=== PATIENT | male | born 1950 | race Asian ===

== ENCOUNTER 2022-10-22 16:16 | Emergency (ER) | payer OTHER ==
[~2022-10-22] VITALS: Ht 167.6 cm; Wt 63.5 kg
--- NOTE | 2022-10-22 16:34 | NUR ---
[facility] FOR GTUBE REPLACEMENT, G TUBE WAS PULLED 4 HR AGO. ATTACHED TO MONITOR. VITALS ARE WITHIN NORMAL LIMITS.
[2022-10-22 16:40] VITALS: BP 91/60; TEMP 98.2; O2SAT 100
[2022-10-22] MEDS ORDERED: DIATR MEGLU/DIATRIZOATE SODIUM 30 ML BOTTLE (GASTROGRAPHIN) ONE (17:51)
--- NOTE | 2022-10-22 18:42 | NUR ---
X RAY AT BEDSIDE
--- NOTE | 2022-10-22 19:12 | NUR ---
RECEIVED REPORT FROM ANGELA AGUIRRE. PT CAME FROM SNF, FOR REINSERTION OF GTUBE WHICH WAS DONE BY DR CARTAGENA. XRAY DONE, WAITING FOR RESULTS, POSSIBLE GOING BACK TO SNF. PT IS ATTACHED TO MONITOR, VITALS CHECKED.
--- NOTE | 2022-10-22 20:20 | NUR ---
[facility] ETA: 30-45 MIN. REPORT GIVEN TO TE FACILITY
--- NOTE | 2022-10-22 21:28 | NUR ---
[facility] AT BED SIDE
--- NOTE | 2022-10-22 21:43 | NUR ---
TRANSFERRED BACK TO SNF
== END 2022-10-22 21:43 ==
LOC: ER 16:25
DX: K94.23 Gastrostomy malfunction (principal); I10 Essential (primary) hypertension; E11.9 Type 2 diabetes mellitus without complications
CPT/HCPCS: 99284; 43762; 74018; Q9963

== ENCOUNTER 2022-10-23 20:15 | Emergency (ER) | payer OTHER ==
[~2022-10-23] VITALS: Ht 167.6 cm; Wt 63.5 kg
--- NOTE | 2022-10-23 20:30 | NUR ---
navjot from [facility] [place], for gtube replacement, pulled out GT, placed f/c. a/ox2. connected to bedside monitor, vitals are stable. nka. bed locked in lowest postion high fowlers.
--- NOTE | 2022-10-23 21:20 | NUR ---
DR ANABEL MCDONOUGH AT PT'S BEDSIDE TO INSERT GT 16FR
[2022-10-23] MEDS ORDERED: DIATR MEGLU/DIATRIZOATE SODIUM 30 ML BOTTLE (GASTROGRAPHIN) ONE (21:21)
--- NOTE | 2022-10-23 21:26 | NUR ---
UNDERCOVER AGENT AT PT'S BEDSIDE FOR GTUBE PLACEMENT Addendum: 10/23/22 at 2127 by JAY UNDERCOVER AGENT AT PT'S BEDSIDE TO CONFIRM GTUBE PLACEMENT
[2022-10-23] MEDS ORDERED: DIATR MEGLU/DIATRIZOATE SODIUM 120 ML BOTTLE (GASTROGRAPHIN) PO ONE (21:30)
--- NOTE | 2022-10-23 22:29 | NUR ---
[facility] TRANSPORT ARRANGED FOR PT GOING BACK TO [facility]. SPOKE TO MIKO. ETA 60-90MINS
--- NOTE | 2022-10-23 22:30 | NUR ---
PATIENT TRANSFERRED BACK TO [facility] VIA [facility]. PATIENT IS VITALLY STABLE.
--- NOTE | 2022-10-23 22:47 | NUR ---
REPORT GIVEN TO JOVI MERCER. REPORT GIVEN TO NICKO OF [facility]
[2022-10-23 22:53] VITALS: BP 102/71; TEMP 98.5; O2SAT 97
== END 2022-10-23 22:54 ==
LOC: ER 20:21
DX: K94.23 Gastrostomy malfunction (principal); I10 Essential (primary) hypertension; E11.9 Type 2 diabetes mellitus without complications
CPT/HCPCS: 99284; 43762; 74018; A6403; Q9963 ×2

== ENCOUNTER 2023-09-14 21:51 | Inpatient (IN) | payer MEDICAID, OTHER ==
[~2023-09-14] VITALS: Ht 157.5 cm; Wt 52.2 kg
[2023-09-14 23:10] LABS: BASOPHILS # (AUTO) 0.1 K/uL (0.0-0.2); BASOPHILS % (AUTO) 0.7 % (0.0-2.0); EOSINOPHILS # (AUTO) 0.6 K/uL (0.0-0.7); EOSINOPHILS % (AUTO) 5.7 % (0.0-6.0); HEMATOCRIT 46 % (39-51); HEMOGLOBIN 15.4 g/dL (13.5-17.5); LYMPHOCYTES # (AUTO) 2.4 K/uL (0.8-4.8); LYMPHOCYTES % (AUTO) 23.2 % (20.0-44.0); MEAN CORPUSCULAR HEMOGLOBIN 29 PG (26.0-33.0); MEAN CORPUSCULAR HGB CONC 34 g/dl (31.0-36.0); MEAN CORPUSCULAR VOLUME 87 fL (80-96); MONOCYTES # (AUTO) 0.9 K/uL (0.1-1.30); MONOCYTES % (AUTO) 8.7 % (2.0-12.0); NEUTROPHILS # (AUTO) 6.4 K/uL (1.8-8.9); NEUTROPHILS % (AUTO) 61.7 % (43.0-81.0); PLATELET COUNT (AUTO) 227 K/uL (150-450); RED BLOOD CELL COUNT(AUTO) 5.27 MIL/uL (4.5-6.0); RED CELL DISTRIBUTION WIDTH 14.9 % (11.5-15.0); WHITE BLOOD COUNT (AUTO) 10.3 K/uL (4.3-11.0)
[2023-09-14 23:21] LABS: INR 1.22 (0.91-1.10); PROTHROMBIN TIME 12.8 SECS (9.2-11.1)
[2023-09-14 23:32] LABS: CALCIUM, SERUM 9.3 mg/dL (8.5-10.1); CARBON DIOXIDE 25 mmol/L (21-32); CHLORIDE 107 mmol/L (98-107); CREATININE 0.9 mg/dL (0.6-1.3); GLUCOSE 95 mg/dL (74-106); POTASSIUM 3.9 mmol/L (3.5-5.1); SODIUM SERUM 142 mmol/L (136-145); UREA NITROGEN, BLOOD 23 mg/dL (7-18)
[2023-09-14 23:38] LABS: ALANINE AMINOTRANSFERASE 48 U/L (12-78); ALBUMIN 2.4 g/dL (3.4-5.0); ALKALINE PHOSPHATASE 63 U/L (46-116); ASPARTATE AMINOTRANSFERASE 32 U/L (15-37); BILIRUBIN,TOTAL 0.6 mg/dL (0.2-1.0); TOTAL PROTEIN, SERUM 7.5 g/dL (6.4-8.2)
[2023-09-15] MEDS ORDERED: INSU100I30 SQ ×2 (06:14→07:39)
[2023-09-15] MEDS ORDERED: INSU3INS5 SQ (06:14)
[2023-09-15] MEDS ORDERED: ATOR40TA GT (06:14)
[2023-09-15] MEDS ORDERED: APIX2.5T GT (06:14)
[2023-09-15] MEDS ORDERED: DEXTROSE 50%-WATER 50 ML DISP.SYRIN IV PRN (06:30)
[2023-09-15] MEDS ORDERED: Z GUARD REMEDY 4 OZ OINT TP PRN (06:30)
[2023-09-15] MEDS ORDERED: ACETAMINOPHEN 650 MG/SUPP.RECT RC PRN (06:30)
[2023-09-15] MEDS ORDERED: SENN8.6T19 GT (07:39)
[2023-09-15] MEDS ORDERED: INSU100I14 SQ (07:39)
[2023-09-15] MEDS ORDERED: MULT-213 GT (07:39)
[2023-09-15] MEDS ORDERED: DOCU50LI GT (07:39)
[2023-09-15] MEDS ORDERED: DULA0.75 SQ (07:39)
[2023-09-15] MEDS ORDERED: ACET-868 GT (07:39)
[2023-09-15] MEDS: IV D5/ 0.9% NACL 1,000 ML IV ONE (08:13)
[2023-09-15] MEDS: PANTOPRAZOLE 40 MG VIAL IV SCH (08:13)
[2023-09-15] MEDS: BLOOD SUGAR DIAGNOSTIC 1 EACH STRIP IN SCH (11:16)
[2023-09-15] MEDS: INSULIN REGULAR, HUMAN 100 UNIT/ML 3 ML VIAL SQ PRN (11:20)
[2023-09-15] MEDS: ATORVASTATIN 40 MG TABLET PO SCH (18:00)
[2023-09-15 20:00] VITALS: BP 98/74; TEMP 97.7; O2SAT 97
[2023-09-15 20:04] VITALS: BP 98/74; TEMP 97.7; O2SAT 97
[2023-09-15] MEDS: IV D5/ 0.9% NACL 1,000 ML IV PRN (20:58)
[2023-09-16 08:00] VITALS: BP 124/74; TEMP 98.8; O2SAT 96
[2023-09-16 09:10] LABS: BASOPHILS # (AUTO) 0.1 K/uL (0.0-0.2); BASOPHILS % (AUTO) 0.6 % (0.0-2.0); EOSINOPHILS # (AUTO) 0.5 K/uL (0.0-0.7); EOSINOPHILS % (AUTO) 6.6 % (0.0-6.0); HEMATOCRIT 41 % (39-51); HEMOGLOBIN 13.5 g/dL (13.5-17.5); LYMPHOCYTES # (AUTO) 1.7 K/uL (0.8-4.8); LYMPHOCYTES % (AUTO) 20.9 % (20.0-44.0); MEAN CORPUSCULAR HEMOGLOBIN 29 PG (26.0-33.0); MEAN CORPUSCULAR HGB CONC 33 g/dl (31.0-36.0); MEAN CORPUSCULAR VOLUME 87 fL (80-96); MONOCYTES # (AUTO) 0.8 K/uL (0.1-1.30); MONOCYTES % (AUTO) 9.6 % (2.0-12.0); NEUTROPHILS # (AUTO) 4.9 K/uL (1.8-8.9); NEUTROPHILS % (AUTO) 62.3 % (43.0-81.0); PLATELET COUNT (AUTO) 194 K/uL (150-450); RED BLOOD CELL COUNT(AUTO) 4.66 MIL/uL (4.5-6.0); WHITE BLOOD COUNT (AUTO) 7.9 K/uL (4.3-11.0)
[2023-09-16 09:20] LABS: CALCIUM, SERUM 8.5 mg/dL (8.5-10.1); CARBON DIOXIDE 24 mmol/L (21-32); CHLORIDE 113 mmol/L (98-107); CREATININE 0.9 mg/dL (0.6-1.3); GLUCOSE 115 mg/dL (74-106); MAGNESIUM 2.2 mg/dL (1.8-2.4); PHOSPHORUS 2.5 mg/dL (2.5-4.9); POTASSIUM 3.7 mmol/L (3.5-5.1); SODIUM SERUM 144 mmol/L (136-145); UREA NITROGEN, BLOOD 18 mg/dL (7-18)
[2023-09-16 16:00] VITALS: BP 104/72; TEMP 99; O2SAT 98
[2023-09-16 19:56] VITALS: BP 117/76; TEMP 98.2; O2SAT 96
[2023-09-16 20:00] VITALS: BP 117/76; TEMP 98.2; O2SAT 96
[2023-09-17 06:47] LABS: BASOPHILS # (AUTO) 0.1 K/uL (0.0-0.2); BASOPHILS % (AUTO) 0.7 % (0.0-2.0); EOSINOPHILS # (AUTO) 0.6 K/uL (0.0-0.7); EOSINOPHILS % (AUTO) 6.7 % (0.0-6.0); HEMATOCRIT 40 % (39-51); HEMOGLOBIN 13.3 g/dL (13.5-17.5); LYMPHOCYTES # (AUTO) 1.8 K/uL (0.8-4.8); LYMPHOCYTES % (AUTO) 21.7 % (20.0-44.0); MEAN CORPUSCULAR HEMOGLOBIN 29 PG (26.0-33.0); MEAN CORPUSCULAR HGB CONC 33 g/dl (31.0-36.0); MEAN CORPUSCULAR VOLUME 89 fL (80-96); MONOCYTES # (AUTO) 0.9 K/uL (0.1-1.30); MONOCYTES % (AUTO) 10.3 % (2.0-12.0); NEUTROPHILS # (AUTO) 5.1 K/uL (1.8-8.9); NEUTROPHILS % (AUTO) 60.6 % (43.0-81.0); PLATELET COUNT (AUTO) 184 K/uL (150-450); RED BLOOD CELL COUNT(AUTO) 4.53 MIL/uL (4.5-6.0); WHITE BLOOD COUNT (AUTO) 8.4 K/uL (4.3-11.0)
[2023-09-17 07:16] LABS: CALCIUM, SERUM 8.3 mg/dL (8.5-10.1); CREATININE 0.8 mg/dL (0.6-1.3); POTASSIUM 3.8 mmol/L (3.5-5.1)
[2023-09-17 07:32] VITALS: BP 111/70; TEMP 98.6; O2SAT 96
[2023-09-17 08:00] VITALS: BP 134/78; TEMP 97.3; O2SAT 98
[2023-09-17] MEDS ORDERED: DIATR MEGLU/DIATRIZOATE SODIUM 30 ML BOTTLE (GASTROGRAPHIN) ONE (08:46)
[2023-09-17] MEDS ORDERED: GLUCERNA 1.2 1,000 ML BOTTLE NG PRN (13:00)
[2023-09-17 16:00] VITALS: BP 132/83; TEMP 98.1; O2SAT 95
[2023-09-17] MEDS: GLUCERNA 1.2 1,000 ML BOTTLE NG PRN (16:22)
[2023-09-17] MEDS: METOCLOPRAMIDE HCL 10 MG TABLET GT SCH (16:23)
[2023-09-17 20:00] VITALS: BP 111/70; TEMP 98.6; O2SAT 96
[2023-09-18] MEDS ORDERED: METO10TA3 GT (07:38)
[2023-09-18 08:41] VITALS: BP 139/83; TEMP 98; O2SAT 95
[2023-09-18] MEDS: ONDANSETRON HCL/PF 4 MG/2 ML VIAL IVP PRN (10:26)
[2023-09-18] MEDS: PANTOPRAZOLE 40 MG/PACK PACK GT SCH (10:26)
== END 2023-09-18 13:10 | DRG 252 ==
LOC: ER 21:52 → MED 09-15 05:52
PROVIDERS: ADMIT Nurse Practitioner Acute Care; ATTEND Internal Medicine
DX: K94.23 Gastrostomy malfunction (principal); L89.156 Pressure-induced deep tissue damage of sacral region; E44.0 Moderate protein-calorie malnutrition; E11.40 Type 2 diabetes mellitus with diabetic neuropathy, unspecified; E88.09 Other disorders of plasma-protein metabolism, not elsewhere classified; N13.30 Unspecified hydronephrosis; I10 Essential (primary) hypertension; Z86.73 Personal history of transient ischemic attack (TIA), and cerebral infarction without residual deficits; E86.0 Dehydration; M24.562 Contracture, left knee; R62.7 Adult failure to thrive; Z96.0 Presence of urogenital implants; Z68.21 Body mass index [BMI] 21.0-21.9, adult; R23.4 Changes in skin texture; Z79.4 Long term (current) use of insulin; Y83.8 Other surgical procedures as the cause of abnormal reaction of the patient, or of later complication, without mention of misadventure at the time of the procedure; Y73.8 Miscellaneous gastroenterology and urology devices associated with adverse incidents, not elsewhere classified; Y92.129 Unspecified place in nursing home as the place of occurrence of the external cause
CPT/HCPCS: 36415; 71045-TC; 74018; 80048-TC; 80053-TC; 82962-TC; 83735-TC; 84100-TC; 85025-TC; 85610-TC; 87081-TC; A4223; C9113; G0378; J1815; J2405; J7042; J8597; Q9963